=== PATIENT | female | born 1985 | race Hispanic/Latino ===

== ENCOUNTER 2020-04-01 12:35 | Emergency (ER) | payer OTHER, SELFPAY ==
--- NOTE | 2020-04-01 12:40 | ECG_ITS ---
Measurements Intervals [place] Rate: 89 P: 58 OH: 97 QRS: 94 QRSD: 101 T: 36 QT: 352 QTc: 431 Interpretive Statements SINUS RHYTHM WITH SHORT [place] INTERVAL RIGHT AXIS DEVIATION MINIMAL Q WAVES- INFERIOR LEADS BASELINE ARTIFACT- I, II, AVR, AVL BORDERLINE ECG Electronically Signed On 04-01-2020 12:53:47 CDT by Reinier Hoskins D.O.
[2020-04-01 13:15] LABS: Add Urine Microscopic? YES; Appearance Urine Clear (Clear); Bilirubin Urine Negative (Negative); Blood Urine Negative (Negative); Color Urine Yellow (Yellow); Glucose Urine UA Negative (Negative); Ketones Urine Negative (Negative); Leukocyte Esterase Ur Negative LEU/UL (Negative); Mucus Urine Few /lpf; Nitrate Urine Negative (Negative); Protein Urine 1+ mg/dL (Negative); RBC Urine 0-2 /hpf (0-2); Squamous Epithelial Cell Urine Few /hpf (Few); Urobilinogen Urine Negative mg/dL (<2.0); WBC Urine 0-3 /hpf
[2020-04-01 13:20] LABS: Specific Grav Ur 1.031 (1.001-1.035)
[2020-04-01 13:45] LABS: Basophils Percent Auto 0.3 % (0.2-1.2); Eosinophils Absolute Auto 0.2 K/mm3 (0-0.3); Eosinophils Percent Auto 2.6 % (0-4.4); Hematocrit 34.4 % (37.0-47.0); Hemoglobin 13.5 g/dL (12.0-15.0); Immature Granulocyte Absolute 0.06 K/mm3 (0.00-0.031); Immature Granulocyte Percent A 0.8 % (0-0.5); Immature Platelet Fraction Pct 0.8 % (0.9-11.2); Lymphocytes Absolute Auto 1.33 K/mm3 (0.9-3.2); Lymphocytes Percent Auto 16.6 % (18.3-44.2); Mean Corpuscular HGB Conc 39.2 g/dl (32-36); Mean Corpuscular Hemoglobin 34.4 pg (26-34); Mean Corpuscular Volume 87.5 fl (80-100); Mean Platelet Volume 10.2 fl (7.4-10.4); Monocytes Absolute Auto 0.6 K/mm3 (0.1-0.6); Monocytes Percent Auto 7.1 % (2.6-8.5); Neutrophils Absolute Auto 5.8 K/mm3 (1.3-6.7); Neutrophils Percent Auto 72.6 % (45.5-73.1); Platelet Count Result 221 k/mm3 (150-375); Red Blood Count 3.93 M/mm3 (4.2-5.4); Red Cell Distribution Width 11.4 % (11.5-14.5)
[2020-04-01 14:28] LABS: Glucose 90 mg/dL (65-105)
[2020-04-01 14:31] LABS: Alanine Aminotransferase 25 U/L (4-35); Albumin Level 3.7 g/dL (3.5-5.1); Alkaline Phosphatase 88 U/L (38-126); Aspartate Amino Transferase 29 U/L (14-36); Bilirubin,Total 0.7 mg/dL (0.2-1.3); Blood Urea Nitrogen 10 mg/dL (7-17); Calcium 8.8 mg/dL (8.4-10.2); Chloride 105 mmol/L (98-107); Estimated Glomerular Filt Rate > 60; Sodium 134 mmol/L (137-145)
[2020-04-01 14:35] LABS: Troponin I 0.016 ng/mL (0.000-0.034)
--- NOTE | 2020-04-01 14:50 | ED.ABDPAIN ---
HPI - Abdominal Pain General Chief Complaint: Abdominal Pain Stated Complaint: epigastric pain Time Seen by Provider: 04/01/20 13:13 Related Data Allergies Allergy/AdvReac Type Severity Reaction Status Date / Time No Known Allergies Allergy Unverified 02/20/19 18:12 MDM - Abdominal Pain Lab Data Result diagrams: 04/01/20 13:18 04/01/20 13:52 Labs: Lab Results 04/01/20 04/01/20 04/01/20 Range/Units 13:02 13:18 13:52 WBC 8.0 (4.5-10.0) K/mm3 RBC 3.93 L (4.2-5.4) M/mm3 Hgb 13.5 (12.0-15.0) g/dL Hct 34.4 L (37.0-47.0) % MCV 87.5 (80-100) fl MCH 34.4 H (26-34) pg MCHC 39.2 H (32-36) g/dl RDW 11.4 L (11.5-14.5) % Plt Count 221 (150-375) k/mm3 MPV 10.2 (7.4-10.4) fl Immature Gran % (Auto) 0.8 H (0-0.5) % Neut % (Auto) 72.6 (45.5-73.1) % Lymph % (Auto) 16.6 L (18.3-44.2) % [place]min[place] % (Auto) 7.1 (2.6-8.5) % Eos % (Auto) 2.6 (0-4.4) % Baso % (Auto) 0.3 (0.2-1.2) % Lymph # (Auto) 1.33 (0.9-3.2) K/mm3 [place]minn # (Auto) 0.6 (0.1-0.6) K/mm3 Eos # (Auto) 0.2 (0-0.3) K/mm3 Baso # (Auto) 0.0 (0.0-0.1) K/mm3 Abs Immat Gran (auto) 0.06 H (0.00-0.031) K/mm3 Absolute Neuts (auto) 5.8 (1.3-6.7) K/mm3 Absolute Nucleated RBC 0.0 (0.0-0.012) K/mm3 Nucleated RBC % 0.0 (0.0-0.2) % % Immature Plt Fraction 0.8 L (0.9-11.2) % Sodium 134 L (137-145) mmol/L Potassium 4.0 (3.4-5.0) mmol/L Chloride 105 (98-107) mmol/L Carbon Dioxide TNP Anion Gap TNP BUN 10 (7-17) mg/dL Creatinine 0.40 L (0.7-1.0) mg/dL Estim Creat Clear Calc Not Reportable Estimated GFR > 60 (59 - ) Glucose 90 (65-105) mg/dL Calcium 8.8 (8.4-10.2) mg/dL Total Bilirubin 0.7 (0.2-1.3) mg/dL AST 29 (14-36) U/L ALT 25 (4-35) U/L Alkaline Phosphatase 88 (38-126) U/L Troponin I 0.016 (0.000-0.034) ng/mL Total Protein 7.0 (6.3-8.2) g/dL Albumin 3.7 (3.5-5.1) g/dL Lipase TNP Urine Color Yellow (Yellow) Urine Appearance Clear (Clear) Urine pH 6.0 (5.0-9.0) Ur Specific [place] 1.031 (1.001-1.035) Urine Protein 1+ H (Negative) mg/dL Urine Glucose (UA) Negative (Negative) mg/dL Urine Ketones Negative (Negative) mg/dL Ur Blood (Man) Negative (Negative) Urine Nitrate Negative (Negative) Urine Bilirubin Negative (Negative) Urine Urobilinogen Negative (<2.0) mg/dL Leukocyte Esterase Rfl Negative (Negative) MISBAH/UL Urine RBC 0-2 (0-2) /hpf Urine WBC 0-3 /hpf Ur Squamous Epith Cells Few (Few) /hpf Urine Mucus Few H /lpf 04/01/20 Range/Units 13:52 WBC (4.5-10.0) K/mm3 RBC (4.2-5.4) M/mm3 Hgb (12.0-15.0) g/dL Hct (37.0-47.0) % MCV (80-100) fl MCH (26-34) pg MCHC (32-36) g/dl RDW (11.5-14.5) % Plt Count (150-375) k/mm3 MPV (7.4-10.4) fl Immature Gran % (Auto) (0-0.5) % Neut % (Auto) (45.5-73.1) % Lymph % (Auto) (18.3-44.2) % [place]minn % (Auto) (2.6-8.5) % Eos % (Auto) (0-4.4) % Baso % (Auto) (0.2-1.2) % Lymph # (Auto) (0.9-3.2) K/mm3 [place]min[place] # (Auto) (0.1-0.6) K/mm3 Eos # (Auto) (0-0.3) K/mm3 Baso # (Auto) (0.0-0.1) K/mm3 Abs Immat Gran (auto) (0.00-0.031) K/mm3 Absolute Neuts (auto) (1.3-6.7) K/mm3 Absolute Nucleated RBC (0.0-0.012) K/mm3 Nucleated RBC % (0.0-0.2) % % Immature Plt Fraction (0.9-11.2) % Sodium (137-145) mmol/L Potassium (3.4-5.0) mmol/L Chloride (98-107) mmol/L Carbon Dioxide Anion Gap BUN (7-17) mg/dL Creatinine (0.7-1.0) mg/dL Estim Creat Clear Calc Estimated GFR (59 - ) Glucose (65-105) mg/dL Calcium (8.4-10.2) mg/dL Total Bilirubin (0.2-1.3) mg/dL AST (14-36) U/L ALT (4-35) U/L Alkaline Phosphatase (38-126) U/L Troponin I Cancelled (0.000-0.034) ng/mL Total Protein (6.3-8.2) g/dL Albumin (3.5-5.1) g/dL Lipase
[2020-04-01] MEDS: SODIUM CHLORIDE 0.9% IV 1,000 ML 999 ML IV CONT (15:34)
[2020-04-01] MEDS: FAMOTIDINE 20 MG/2 ML VIAL IV PUSH (15:34)
[2020-04-01] MEDS: LIDOCAINE HCL 2% VISC SOLN 15 ML UDC 20 ML PO (15:44)
[2020-04-01] MEDS: MAG HYDROX/AL HYDROX/SIMETH 30 ML UDC PO (15:44)
--- NOTE | 2020-04-01 16:23 | ED.ABDPAIN ---
HPI - Abdominal Pain General Chief Complaint: Abdominal Pain <Jerzy Nunes PA-C - Last Filed: 04/01/20 16:29> Stated Complaint: epigastric pain <Jerzy Nunes PA-C - Last Filed: 04/01/20 16:29> Time Seen by Provider: 04/01/20 13:13 <Jerzy Nunes PA-C - Last Filed: 04/01/20 16:29> Source: patient <Jerzy Nunes PA-C - Last Filed: 04/01/20 16:29> Mode of arrival: ambulatory <REFUGIO Garces Last Filed: 04/01/20 16:29> Limitations: no limitations and language barrier <Jerzy Nunes PA-C - Last Filed: 04/01/20 16:29> History of Present Illness HPI narrative: Patient is a 34-year-old female with epigastric discomfort that is continuous worsening over the last 3 days patient has not taken anything for her symptoms denies any fever chills nausea vomiting patient believes it may be due to the spicy food she has in her diet patient otherwise resting comfortably in no distress pain does not radiate <Jerzy Nunes PA-C - Last Filed: 04/01/20 16:29> Related Data Allergies/Adverse Reactions: Allergies Allergy/AdvReac Type Severity Reaction Status Date / Time No Known Allergies Allergy Unverified 02/20/19 18:12 <Jerzy Nunes PA-C - Last Filed: 04/01/20 16:29> Review of Systems Review of Systems: All systems reviewed & are unremarkable except as noted in HPI and below <Jerzy Nunes PA-C - Last Filed: 04/01/20 16:29> PMFSH Social History Social History: Social History Smoking status: Never smoker <REFUGIO Garces Last Filed: 04/01/20 16:29> Exam Narrative: Exam Narrative: GENERAL: Well-appearing, well-nourished, and in no acute distress. HEAD: Normocephalic, atraumatic. EYES: PERRLA and EOMI. ENT: Nares clear, no rhinorrhea or epistaxis. Mucous membranes moist. CHEST: Clear to auscultation. No respiratory distress. No wheezes rales or rhonchi HEART: Regular rate and rhythm. No murmur heard. Normal peripheral pulses. ABDOMEN: Soft, epigastric tenderness no rebound or guarding, nondistended EXTREMITIES: Normal range of motion. No edema. SKIN: Warm, dry, no rash. NEURO: No focal deficits. Alert and oriented x3. PSYCH: Normal mood and affect. <Jerzy Nunes PA-C - Last Filed: 04/01/20 16:29> Course Course Emergency Course: Patient in the room aware of case findings treatment plan and diagnosis agreeing to follow-up as directed or to return if symptoms worsen or concerns likely gastritis patient is aware of these findings improvement with medications and the GI cocktail and agrees to follow with GI <REFUGIO Garces Last Filed: 04/01/20 16:29> MDM - Abdominal Pain MDM Narrative Medical decision making narrative: Patient in the room at this time in no distress agreeing to follow-up with gastroenterology and primary care for further evaluation with gastritis is the likely etiology of her symptoms no other high risk changes in the evaluation patient noted improvement with medications <Jerzy Nunes PA-C - Last Filed: 04/01/20 16:29> Lab Data Result diagrams: : 04/01/20 13:18 04/01/20 13:52 <REFUGIO Garces Last Filed: 04/01/20 16:29> Labs: Lab Results 04/01/20 04/01/20 04/01/20 Range/Units 13:02 13:18 13:52 WBC 8.0 (4.5-10.0) K/mm3 RBC 3.93 L (4.2-5.4) M/mm3 Hgb 13.5 (12.0-15.0) g/dL Hct 34.4 L (37.0-47.0) % MCV 87.5 (80-100) fl MCH 34.4 H (26-34) pg MCHC 39.2 H (32-36) g/dl RDW 11.4 L (11.5-14.5) % Plt Count 221 (150-375) k/mm3 MPV 10.2 (7.4-10.4) fl Immature Gran % (Auto) 0.8 H (0-0.5) % Neut % (Auto) 72.6 (45.5-73.1) % Lymph % (Auto) 16.6 L (18.3-44.2) % [place] % (Auto) 7.1 (2.6-8.5) % Eos % (Auto) 2.6 (0-4.4) % Baso % (Auto) 0.3 (0.2-1.2) % Lymph # (Auto) 1.33 (0.9-3.2) K/mm3 [place]
== END 2020-04-01 17:00 | disposition home or self-care (01) ==
PROVIDERS: Emergency Provider Emergency Medicine
DX: R10.13 Epigastric pain (principal)
CPT/HCPCS: 36415; 80053; 81001; 81025; 83690; 84484; 85025; 85055; 93005; 96365; 96375; 99284; A9270; J0131; J7030

== ENCOUNTER 2022-05-02 16:05 | Emergency (ER) | payer OTHER, SELFPAY ==
[2022-05-02 16:18] VITALS: BP 130/62; PULSE 81; RESP 16; TEMP 36.8; O2SAT 100
--- NOTE | 2022-05-02 16:30 | ED.EYEPROB ---
HPI - Eye Problem General Chief complaint: Eye Problems Stated complaint: Right Eye Irritation Time Seen by Provider: 05/02/22 16:30 Source: patient Mode of arrival: ambulatory Limitations: language barrier History of Present Illness HPI Narrative: 36-year-old female presented for complaint of red watery itchy and painful right eye for 3 weeks. She endorses the eye has been crusted shut in the morning. She also endorses drainage throughout the day. Has been taking [id number] eyedrops as needed. Denies injury or foreign body. Denies vision changes or photophobia. Sister is translating per pt request. chief complaint: eye pain Related Data Allergies Allergy/AdvReac Type Severity Reaction Status Date / Time No Known Allergies Allergy Verified 05/02/22 16:20 Review of Systems Review of Systems: CONSTITUTIONAL: Denies body aches, fever, chills EYES:per HPI ENT: Denies rhinorrhea, congestion, sore throat, or otalgia. CARDIOVASCULAR: Denies chest pain, palpitations RESPIRATORY: Denies cough or dyspnea. GASTROINTESTINAL: Denies abdominal pain, nausea, vomiting, or diarrhea. SKIN: Denies rash, itching, or wounds. MUSCULOSKELETAL: Denies back pain, joint pain, or myalgia. NEUROLOGIC: Denies headache, numbness, tingling, or weakness. All systems reviewed & are unremarkable except as noted in HPI and below PMFSH Comments At time of signature, I have reviewed and agree with nursing past medical, surgical, social and family history unless otherwise noted. Please see nursing chart for further information. There is no relevant family history pertinent to the presenting complaint Exam Narrative: GENERAL: Well-appearing HEAD: Normocephalic, atraumatic. EYES: right conjunctival injection, minimal clear drainage; no eye lid swelling. EOMI. Lid eversion showed no FB. ENT: Mucous membranes pink and moist. No rhinorrhea. TMs normal bilaterally. Throat normal. Uvula midline. CHEST: Clear to auscultation. HEART: Regular rate and rhythm. ABDOMEN: Soft, nontender, nondistended SKIN: Warm, dry, no rash. Normal skin turgor. Course Course Emergency Course: Patient is aware of diagnosis, understands and agrees to treatment plan. Anticipatory guidance given. Patient agrees to follow-up as directed and is aware of reasons to seek care at the emergency department. Portions of this record may have been created with voice recognition software Level of Care: Express Care Visit Vital Signs Vital signs: Vital Signs Temperature 98.2 F 05/02/22 16:18 Pulse Rate 81 05/02/22 16:18 Respiratory Rate 16 05/02/22 16:18 Blood Pressure 130/62 05/02/22 16:18 Pulse Oximetry 100 05/02/22 16:18 Oxygen Delivery Room Air 05/02/22 16:18 Temperature 98.2 F 05/02/22 16:18 Pulse Rate 81 05/02/22 16:18 Respiratory Rate 16 05/02/22 16:18 Blood Pressure 130/62 05/02/22 16:18 Pulse Oximetry 100 05/02/22 16:18 Oxygen Delivery Room Air 05/02/22 16:18 MDM - Eye Problem MDM Narrative Medical decision making narrative: Advised supportive measures and signs/symptoms to go to the ER. Pt is appropriate for outpt treatment and f/u. Differential Diagnosis Differential diagnosis: Likely corneal abrasion, conjunctivitis, acute iritis and other Discharge Plan Discharge Clinical Impression: Bacterial conjunctivitis Patient Disposition: Home, Self-Care Condition: Stable Instructions: Antibiotic Form, Conjunctivitis (ED) Additional Instructions: Avoid touching or rubbing your eye. Use over the counter lubricating eye drops as needed for irritation Use a warm or cool washcloth on your eye for comfort Use eyedrops as directed - you are contagious for 24 hours after starting the antibiotic Practice good handwashing and hygiene to prevent spread of infection You may take Tylenol or ibuprofen for pain ---Follow-up with PCP or napping machine operator if condition is not improving in 2-3days. Go to
== END 2022-05-02 16:46 | disposition home or self-care (01) ==
PROVIDERS: Emergency Provider Nurse Practitioner Family
DX: H10.9 Unspecified conjunctivitis (principal); I10 Essential (primary) hypertension; Z98.84 Bariatric surgery status
CPT/HCPCS: 99203; G0463

== ENCOUNTER 2023-03-12 18:35 | Emergency (ER) | payer OTHER, SELFPAY ==
--- NOTE | 2023-03-12 18:43 | ED.FEMALEGU ---
HPI - Female Genitourinary General Chief complaint: Urogenital-Female Stated complaint: vaginal discharge/itching Source: patient and RN notes reviewed History of Present Illness HPI Narrative: 37-year-old female presents to urgent care with sister, Lydia, at side. Lydia is translating for the patient with pt permission. Pt states she has been having vaginal discharge and itching x 2 days. Pt states she is in a [place] [facility] relationship and not sure if he has had other partners recently. Denies any dysuria, back pain, dyspareunia, fevers, chills, or abdominal pain. Denies any recent Abx use or taking baths regularly. Related Data Home Medications Medication Instructions Recorded Confirmed etonogestrel 0.12 mg-ethinyl vag ring vaginal 03/12/23 estradiol 0.015 mg/24 hr vaginal ring (NuvaRing) [id number] cap PO 03/12/23 24,000-76,000-120,000 unit capsule,delayed rel (Creon) Allergies Allergy/AdvReac Type Severity Reaction Status Date / Time No Known Allergies Allergy Verified 03/12/23 18:51 Review of Systems Review of Systems: CONSTITUTIONAL: Denies fever, chills, or sweats. EYES: Denies visual changes, redness, or discharge. ENT: Denies otalgia and sore throat CARDIOVASCULAR: Denies chest pain, palpitations, or edema. RESPIRATORY: Denies cough or dyspnea. GASTROINTESTINAL: Denies abdominal pain, nausea, vomiting, or diarrhea. GENITOURINARY: Vaginal discharge and itching SKIN: Denies rash or itching. MUSCULOSKELETAL: Denies back pain, joint pain, or myalgia. NEUROLOGIC: Denies headache, numbness, or weakness. Pertinent positives per HPI. PMFSH Comments At the time of my signature, I reviewed and agree with the nursing past medical, surgical, social, and family history. There is no relevant family history pertinent to the patient complaint. Exam Narrative: GENERAL: This is a well-nourished, well-developed patient, in no apparent distress. HEAD: normocephalic, atraumatic. EYES: Sclera clear/white. Vision is grossly intact. EARS: External ears normal, auditory canals clear and without drainage. Hearing grossly intact. NOSE: External nose normal with no obvious nasal discharge, nares without redness, no rhinorrhea. THROAT: Mucous membranes moist, posterior pharynx clear. NECK: Neck supple, non-tender without lymphadenopathy, masses or thyromegaly. CARDIOVASCULAR: Regular rate RESPIRATORY: No respiratory distress GASTROINTESTINAL: Abdomen soft, non-tender, nondistended. Bowel sounds are active. No hepato-splenomegaly, or palpable masses. No guarding. GENITOURINARY: white, moderately thick, discharge noted on pelvic exam. Cervix closed and pink. No rashes or lesions noted. No cervical tenderness noted. SKIN: warm, intact with no suspicious lesions or rash, good texture and turgor. NEURO: awake, alert, and oriented to person, place and time. There were no obvious focal neurologic abnormalities. EXTREMITIES: No clubbing, cyanosis, or edema. No joint tenderness, effusion, or edema noted. BACK: Nontender without deformity or crepitus. No flank tenderness. Course Course Level of Care: Express Care Visit Vital Signs Vital signs: Vital Signs Temperature 98.6 F 03/12/23 18:50 Pulse Rate 73 03/12/23 18:50 Respiratory Rate 16 03/12/23 18:50 Blood Pressure 125/75 03/12/23 18:50 Pulse Oximetry 99 03/12/23 18:50 Oxygen Delivery Room Air 03/12/23 18:50 Temperature 98.6 F 03/12/23 18:51 Pulse Rate 73 03/12/23 18:51 Respiratory Rate 16 03/12/23 18:51 Blood Pressure 125/75 03/12/23 18:51 Pulse Oximetry 99 03/12/23 18:51 Oxygen Delivery Room Air 03/12/23 18:51 reviewed MDM - Female Genitourinary MDM Narrative Medical decision making narrative: Take the Diflucan medication as directed for yeast infection. You will be called with any positive results. Differential Diagnosis Differential diagnosis: Likely bacterial vaginosis, t
[2023-03-12 18:50] VITALS: BP 125/75; PULSE 73; RESP 16; TEMP 37; O2SAT 99
[2023-03-12 18:51] VITALS: BP 125/75; PULSE 73; RESP 16; TEMP 37; O2SAT 99
== END 2023-03-12 19:29 | disposition home or self-care (01) ==
PROVIDERS: Emergency Provider Nurse Practitioner Family; PCP Emergency Medicine
DX: N76.0 Acute vaginitis (principal); I10 Essential (primary) hypertension; Z98.84 Bariatric surgery status
CPT/HCPCS: 87070; 87491; 87591; 87661; 99214; G0463

== ENCOUNTER 2023-11-15 08:22 | Outpatient (CLI) | payer OTHER, SELFPAY ==
--- NOTE | ~2023-11-15 | US_ITS ---
US abdomen limited INDICATION: Right upper quadrant pain PROCEDURE: Realtime right upper abdominal ultrasound. COMPARISON: No prior studies for comparison. FINDINGS: The pancreas is normal without focal mass or pancreatic ductal dilation. Liver echotexture is slightly increased although heterogeneous, consistent with fatty infiltration. In the right lobe there is a solid 4.3 cm hypoechoic mass with internal vascularity. There is normal directional flow in the portal vein. The gallbladder is normal without stones, gallbladder wall thickening or pericholecystic fluid. Comm on bile duct measures 4 mm. No sonographic Kohler's sign. IMPRESSION: 1: Solid 4.3 cm vascular liver mass involving the right hepatic lobe, concerning for malignancy. Furt her evaluation with CT or MRI without and with contrast recommended for further assessment. Reviewed, dictated and finalized at location B. IMPRESSION: 1: Solid 4.3 cm vascular liver mass involving the right hepatic lobe, concernin g for malignancy. Further evaluation with CT or MRI without and with contrast r ecommended for further assessment.
== END 2023-11-15 08:23 | disposition home or self-care (01) ==
PROVIDERS: PCP Emergency Medicine; Visit Provider Family Medicine
DX: R16.0 Hepatomegaly, not elsewhere classified (principal)
CPT/HCPCS: 76705